=== PATIENT | male | born 1960 | race Hispanic/Latino ===

== ENCOUNTER 2016-04-12 16:20 | Inpatient (IN) | payer OTHER, SELFPAY ==
[2016-04-12] MEDS ORDERED: Lorazepam 2 MG/ML VIAL ONE (17:14)
[2016-04-12 17:30] LABS: ALT (SGPT) 23 U/L (0-55); AST (SGOT) 31 U/L (5-34); Acetaminophen Less than 3.0 mcg/mL (10.0-30.0); Alkaline Phosphatase 72 U/L (40-150); Anion Gap 25 mmol/L (10-20); BUN (Urea Nitrogen) 9 mg/dL (8.4-25.7); Band 2 % (5-11); Bilirubin, Total 0.8 mg/dL (0.2-1.2); CK (CPK) 1172 U/L (30-200); Calc. Creatinine Clearance 0 mL/min (70-130); Calcium 10.2 mg/dL (7.8-10.44); Carbon Dioxide 15 mmol/L (22-29); Chloride 103 mmol/L (98-107); Estimated GFR-MDRD 48; Globulin 3.3 g/dL (2.4-3.5); Hematocrit 48.3 % (42.0-52.0); Neutrophil 88 % (42-75); Protein, Total 8.2 g/dL (6.0-8.3); Red Blood Cell (RBC) Count 5.38 mill/uL (4.70-6.10); Salicylate Less than 5.0 mg/dL (15.0-30.0); White Blood Cell (WBC) Count 21.8 thou/uL (4.8-10.8)
[2016-04-12 18:22] LABS: Bilirubin Negative (Negative); Blood, Urine Moderate (Negative); Glucose, Urine (Dipstick) Negative (Negative); Ketone, Urine 40 mg/dL (Negative); Nitrite Negative (Negative); Protein, Urine (Dipstick) 100 mg/dL (Neg-Trace)
[2016-04-12 18:31] LABS: Bacteria/HPF None Seen HPF (None Seen); Hyaline Casts/LPF NONE SEEN LPF (0-3 Hyaline); Oval Fat Bodies/HPF None Seen HPF (None Seen); RBC/HPF 0-3 HPF (0-3); Renal Epithelial None Seen HPF (0-3); Sperm/HPF 1+ HPF (None Seen); Squamous Epithelial None Seen HPF (0-3); Transitional Epithelial NONE SEEN HPF (0-3); Trichomonas/HPF None Seen HPF (None Seen); WBC/HPF 0-3 HPF (0-3); Yeast-All Forms None Seen HPF (None Seen)
[2016-04-12 18:53] LABS: Methadone Not Detected (NotDetected); Methamphetamine Detected (NotDetected)
[2016-04-12 21:51] LABS: Anion Gap 11 mmol/L (10-20)
[2016-04-12 21:56] LABS: BUN (Urea Nitrogen) 9 mg/dL (8.4-25.7); Calc. Creatinine Clearance 0 mL/min (70-130); Calcium 7.6 mg/dL (7.8-10.44); Carbon Dioxide 19 mmol/L (22-29); Chloride 113 mmol/L (98-107); Estimated GFR-MDRD Greater than 90
[2016-04-12 21:57] LABS: CK (CPK) 4183 U/L (30-200)
[2016-04-13] VITALS: BMI 28.2
[2016-04-13] MEDS ORDERED: Lorazepam 2 MG/ML VIAL SLOW IVP PRN (00:24)
[2016-04-13] MEDS ORDERED: Ondansetron ODT 4 MG TAB SL PRN (00:24)
[2016-04-13] MEDS ORDERED: Ondansetron HCl/PF 4 MG/2 ML Vial IVP PRN (00:24)
[2016-04-13] MEDS ORDERED: Acetaminophen 325 MG TAB PO PRN (00:24)
[2016-04-13] MEDS: Sodium Chloride 0.9% 1,000 ML IV SCH ×5 (00:52→22:35)
[2016-04-13 06:08] LABS: Anion Gap 12 mmol/L (10-20); BUN (Urea Nitrogen) 10 mg/dL (8.4-25.7); Calc. Creatinine Clearance 120 mL/min (70-130); Calcium 7.7 mg/dL (7.8-10.44); Carbon Dioxide 18 mmol/L (22-29); Chloride 114 mmol/L (98-107); Estimated GFR-MDRD Greater than 90
[2016-04-13 06:14] LABS: CK (CPK) 7272 U/L (30-200)
[2016-04-13] MEDS ORDERED: Calcium Carbonate + Vit D 1 TAB PO SCH ×2 (07:00→19:00)
[2016-04-13] MEDS ORDERED: FLU VACC QS2016-17 36MOS UP/PF 0.5 ML SYRINGE IM ONE (09:00)
[2016-04-13 16:36] LABS: Anion Gap 8 mmol/L (10-20)
[2016-04-13 16:50] LABS: ALT (SGPT) 24 U/L (0-55); AST (SGOT) 62 U/L (5-34); Alkaline Phosphatase 55 U/L (40-150); BUN (Urea Nitrogen) 11 mg/dL (8.4-25.7); Bilirubin, Total 0.3 mg/dL (0.2-1.2); Calc. Creatinine Clearance 120 mL/min (70-130); Calcium 7.6 mg/dL (7.8-10.44); Carbon Dioxide 22 mmol/L (22-29); Chloride 113 mmol/L (98-107); Estimated GFR-MDRD Greater than 90; Globulin 2.2 g/dL (2.4-3.5); Protein, Total 5.3 g/dL (6.0-8.3)
[2016-04-14] MEDS: Sodium Chloride 0.9% 1,000 ML IV SCH (04:14)
[2016-04-14 05:24] LABS: ALT (SGPT) 25 U/L (0-55); AST (SGOT) 54 U/L (5-34); Alkaline Phosphatase 56 U/L (40-150); Anion Gap 9 mmol/L (10-20); BUN (Urea Nitrogen) 6 mg/dL (8.4-25.7); Bilirubin, Total 0.3 mg/dL (0.2-1.2); CK (CPK) 3481 U/L (30-200); Calc. Creatinine Clearance 129 mL/min (70-130); Calcium 7.8 mg/dL (7.8-10.44); Carbon Dioxide 21 mmol/L (22-29); Chloride 113 mmol/L (98-107); Estimated GFR-MDRD Greater than 90; Globulin 2.3 g/dL (2.4-3.5); Protein, Total 5.5 g/dL (6.0-8.3)
[2016-04-14 06:14] VITALS: BP 136/68; TEMP 99.2
[2016-04-14 11:45] LABS: Hematocrit 41.6 % (42.0-52.0); Mean Platelet Volume 5.1 fL (7.4-10.4); Red Blood Cell (RBC) Count 4.49 mill/uL (4.70-6.10); White Blood Cell (WBC) Count 8.3 thou/uL (4.8-10.8)
== END 2016-04-14 13:45 | disposition home or self-care (01) | DRG 558 ==
LOC: BURERS 16:20 → BURMED 22:45
PROVIDERS: ADMIT Family Medicine; ATTEND Family Medicine
DX: M62.82 Rhabdomyolysis (principal); F15.10 Other stimulant abuse, uncomplicated; Z72.0 Tobacco use; S80.10XA Contusion of unspecified lower leg, initial encounter; S40.029A Contusion of unspecified upper arm, initial encounter; X58.XXXA Exposure to other specified factors, initial encounter
CPT/HCPCS: 36415; 80048; 80053; 80306; 80307; 81003; 81015; 82550; 83735; 84443; 85025; 85027; 93005; 94760; 96361; 96374; A4216; J2060

== ENCOUNTER 2024-02-10 10:22 | Emergency (ER) | payer MEDICARE, OTHER ==
[2024-02-10] MEDS ORDERED: Sulfameth/Trimethoprim DS 800-160mg TAB ONE (10:56)
[2024-02-10] MEDS ORDERED: Cephalexin 250 MG CAP ONE (10:56)
== END 2024-02-10 11:02 | disposition home or self-care (01) ==
LOC: BURERS 10:22
DX: L03.115 Cellulitis of right lower limb (principal)
CPT/HCPCS: 99283

== ENCOUNTER 2025-01-24 15:21 | Emergency (ER) | payer MEDICARE, OTHER | END 2025-01-24 17:53 | disposition home or self-care (01) | LOC: BURERS 15:21 | DX: S53.402A Unspecified sprain of left elbow, initial encounter (principal); W19.XXXA Unspecified fall, initial encounter | CPT/HCPCS: 29105 ==